=== PATIENT | male | born 1945 | race Caucasian/White ===

== ENCOUNTER → 2018-08-12 | Outpatient (CLI) | payer OTHER ==
[~2018-08-12] MED LIST: AMLO10; Indapamide1.25 MG; K-Dur20 MEQ PO; METF500C; PIOG30 PO; TOPROL XL200 MG PO; Zestril40 MG PO
[2018-08-13 08:37] LABS: Stool Occult Bld Immuno 1 Positive (NEGATIVE)
== END | disposition home or self-care (01) ==
LOC: LAB SHORT 09:26 → LAB 09:26
PROVIDERS: Internal Medicine
DX: D50.8 Other iron deficiency anemias (principal)
CPT/HCPCS: 82274

== ENCOUNTER 2019-05-12 11:02 | Day surgery (SDC) | payer OTHER ==
[~2019-05-12] VITALS: Ht 162.6 cm; Wt 100.0 kg
[~2019-05-12 11:02] MED LIST changes: -AMLO10; +AMLO10 PO; +CHLO25B PO; +CHOL10002 PO; +IRON150C PO; +LOVA40 PO; -METF500C; +METF500C PO; +NAPR220
--- NOTE | 2019-05-12 12:47 | NUR ---
Ambulatory in Day Surgery History, Chart, Medications and Allergies reviewed before start of procedure. Lungs clear T/O to Auscultation. Patient confirms NPO status and agrees with scheduled surgery. Pre-Op teaching done. Pt verbalizes understanding.
--- NOTE | 2019-05-12 19:15 | NUR ---
POST OP: PT ARRIVED TO ROOM POST OP. BLOOD PRESSURE ELEVATED AT TIMES, SEE VITAL RECORD. WILL GIVE PT SCHEDULED BP MEDS. PT LYNETTE JELLO AND WATER. IV DRIP FROM PACU. DRESSING CDI. PAS, TEDS AND POLAR PACK IN PLACE. PT HAS NUMBNESS AND TINGLING TO BLE R/T SPINAL ANESTHESIA. DENIES PAIN. INSTRUCTED PASSENGER LOCOMOTIVE ENGINEER LIGHT USE. WILL REPORT TO NOC RN.
[2019-05-13 04:39] LABS: BASOPHILS ABSOLUTE AUTO 0.01 K/mm3 (0.00-0.23); BASOPHILS PERCENT AUTO 0 % (0-2); EOSINOPHILS PERCENT AUTO 0 % (0-6); Hematocrit 35.4 % (37.0-53.0); Hemoglobin 11.6 g/dL (13.5-17.5); IMMATURE GRAN ABSOLUTE AUTO 0.04 K/mm3 (0.00-0.10); IMMATURE GRAN PERCENT AUTO 0 % (0-1); LYMPHOCYTES ABSOLUTE AUTO 1.15 K/mm3 (0.84-5.20); LYMPHOCYTES PERCENT AUTO 11 % (21-46); MONOCYTES ABSOLUTE AUTO 0.31 K/mm3 (0.16-1.47); MONOCYTES PERCENT AUTO 3 % (4-13); Mean Corpuscular HGB 29.7 pg (26.0-34.0); Mean Corpuscular HGB Conc 32.8 g/dL (31.5-36.5); Mean Corpuscular Volume 91 fL (80-100); Mean Platelet Volume 9.5 fL (9.1-12.4); NEUTROPHILS ABSOLUTE AUTO 9.47 K/mm3 (1.96-9.15); NEUTROPHILS PERCENT AUTO 86 % (41-73); Platelet Count 238 K/mm3 (150-400); RDW Standard Deviation 46.7 fL (35.1-46.3); White Blood Cell Count 10.98 K/mm3 (4.00-11.30)
[2019-05-13 04:56] LABS: Bun/Creatinine Ratio 15.8 (12.0-20.0); Calcium, Blood 8.2 mg/dL (8.5-10.1); Creatinine, Blood 1.46 mg/dL (0.60-1.20); Magnesium, Blood 1.6 mg/dL (1.6-2.4); Potassium, Blood 4.2 mmol/L (3.5-5.5)
--- NOTE | 2019-05-13 05:48 | NUR ---
CHAIR OR WALKING MORE THAN 20 FEET.RN NOTIFIED
--- NOTE | 2019-05-13 05:56 | NUR ---
SHIFT SUMMARY PT RESTED INFREQUENTLY T/O NIGHT. AAOX4. PAIN CONTRLLED WITH SCHEDULED TYLENOL / TORADOL + 10MG PO ROXICODONE Q4-5P. NAUSEA CONTROLLED WITH ZOFRAN + REGLAN WITH SMALL AMOUNT EMESIS THIS AM. PT SBA UP TO RESTROOM WITH FWW. PT SITTING UP AT BEDSIDE THIS AM, AWAITING BREAKFAST. CALL LIGHT IN REACH + PT USES FOR ASSISTANCE.
--- NOTE | 2019-05-13 10:35 | NUR ---
05/13/19 1035 Brooke Scott VERIFICATIONS: EDIT CHART.
[2019-05-13] MEDS ORDERED: OXYC5 PO (17:50)
[2019-05-13] MEDS ORDERED: ASPI325 PO (17:51)
--- NOTE | 2019-05-13 18:40 | NUR ---
DISCHARGE PT UNDERSTANDS DISCHARGE INSTRUCTIONS. SCRIPT AND DRSGS GIVEN. CLEARED THEPAY. VOIDING, TOLERATING DIET, PAIN WELL CONTROLLED. ESCORTED OUT VIA W/C.
== END 2019-05-13 18:55 | disposition home or self-care (01) ==
LOC: ORSCMMR 11:02 → ORD 13:00 → ORSCMMR 13:00 → SURS 18:49 → ORSCMMR 05-13 18:55
PROVIDERS: Orthopaedic Surgery
PROC: 0SRD0J9 Replacement of Left Knee Joint with Synthetic Substitute, Cemented, Open Approach (ICD-10-PCS; principal; 2019-05-12 13:00)
DX: M17.12 Unilateral primary osteoarthritis, left knee (principal); I10 Essential (primary) hypertension; E11.9 Type 2 diabetes mellitus without complications; E78.00 Pure hypercholesterolemia, unspecified; Z87.891 Personal history of nicotine dependence; E66.01 Morbid (severe) obesity due to excess calories; Z68.36 Body mass index [BMI] 36.0-36.9, adult; Z79.899 Other long term (current) drug therapy
CPT/HCPCS: 36415; 73560-LT; 80048; 82947; 83735; 85025; 88300; 97110; 97116; 97162; 97530; C1713; C1776; J0171; J0690; J0735; J1100; J1170; J1885; J2250; J2405; J2550; J2704; J2765; J2795; J3010; J7120

== ENCOUNTER → 2019-10-07 | Outpatient (CLI) | payer OTHER ==
[~2019-10-07] MED LIST changes: +ASPI325 PO; +OXYC5 PO
== END | disposition home or self-care (01) ==
LOC: PLD 11:31 → LAB SHORT 11:31
DX: D17.24 Benign lipomatous neoplasm of skin and subcutaneous tissue of left leg (principal)
CPT/HCPCS: 88305

== ENCOUNTER 2020-12-27 17:07 | Emergency (ER) | payer OTHER ==
[~2020-12-27] VITALS: Ht 162.6 cm; Wt 79.4 kg
[2020-12-27] MEDS ORDERED: LISI20 PO (17:17)
[2020-12-27] MEDS ORDERED: K-Dur10 MEQ PO (17:17)
[2020-12-27] MEDS ORDERED: AMLODIPINE BESYL5 MG PO (17:17)
[2020-12-27] MEDS ORDERED: LOVASTATIN40 MG PO (17:17)
[2020-12-27] MEDS ORDERED: Toprol Xl200 MG PO (17:18)
[2020-12-27] MEDS ORDERED: METFORMIN HCL500 M3 PO (17:18)
[2020-12-27] MEDS ORDERED: PIOGLITAZONE HC15 MG PO (17:18)
[2020-12-27] MEDS ORDERED: THERA-D2000 UNIT PO (17:18)
[2020-12-27] MEDS ORDERED: FERSU300 PO (17:19)
[2020-12-27] MEDS ORDERED: CHLO25B PO (17:19)
[2020-12-27 18:35] LABS: BASOPHILS ABSOLUTE AUTO 0.01 K/mm3 (0.00-0.23); BASOPHILS PERCENT AUTO 0 % (0-2); EOSINOPHILS ABSOLUTE AUTO 0.01 K/mm3 (0.00-0.68); EOSINOPHILS PERCENT AUTO 0 % (0-6); Hemoglobin 11.8 g/dL (13.5-17.5); IMMATURE GRAN ABSOLUTE AUTO 0.02 K/mm3 (0.00-0.10); IMMATURE GRAN PERCENT AUTO 0 % (0-1); LYMPHOCYTES ABSOLUTE AUTO 2.34 K/mm3 (0.84-5.20); LYMPHOCYTES PERCENT AUTO 30 % (21-46); MONOCYTES ABSOLUTE AUTO 0.53 K/mm3 (0.16-1.47); MONOCYTES PERCENT AUTO 7 % (4-13); Mean Corpuscular HGB 34.7 pg (26.0-34.0); Mean Corpuscular HGB Conc 32.8 g/dL (31.5-36.5); Mean Corpuscular Volume 106 fL (80-100); Mean Platelet Volume 10.3 fL (9.1-12.4); NEUTROPHILS PERCENT AUTO 62 % (41-73); Platelet Count 212 K/mm3 (150-400); RDW Coefficient Variation 18.7 % (11.7-14.2); RDW Standard Deviation 71.8 fL (35.1-46.3); White Blood Cell Count 7.71 K/mm3 (4.00-11.30)
[2020-12-27 18:46] LABS: Anion Gap 3 mmol/L (6-16); Blood Urea Nitrogen 37 mg/dL (8-24); Bun/Creatinine Ratio 47.6 (12.0-20.0); CO2, Blood 34 mmol/L (21-32); Calcium, Blood 9.1 mg/dL (8.5-10.1); Chloride, Blood 102 mmol/L (98-108); Creatinine, Blood 0.78 mg/dL (0.60-1.20); Glomerular Filtration Rate >60 (60-); Glucose, Blood 99 mg/dL (70-99); Potassium, Blood 3.4 mmol/L (3.5-5.5); Sodium, Blood 139 mmol/L (136-145)
[2020-12-27] MEDS ORDERED: ONDA4ODT MM (21:29)
== END 2020-12-27 22:13 | disposition home or self-care (01) ==
LOC: ER 17:07
PROVIDERS: Student in an Organized Health Care Education/Training Program
DX: R11.2 Nausea with vomiting, unspecified (principal); R19.7 Diarrhea, unspecified; I10 Essential (primary) hypertension; E11.9 Type 2 diabetes mellitus without complications; Z79.899 Other long term (current) drug therapy; Z87.891 Personal history of nicotine dependence
CPT/HCPCS: 80048; 85025; 93005; 93010; 96361; 96374; 99284-25; J2405; J7030

== ENCOUNTER 2021-01-02 22:16 | Inpatient (IN) | payer OTHER ==
[~2021-01-02] VITALS: Ht 162.6 cm; Wt 82.8 kg
[~2021-01-02 22:16] MED LIST changes: +AMLODIPINE BESYL5 MG PO; +FERSU300 PO; +K-Dur10 MEQ PO; +LISI20 PO; +LOVASTATIN40 MG PO; +METFORMIN HCL500 M3 PO; +ONDA4ODT MM; +PIOGLITAZONE HC15 MG PO; +THERA-D2000 UNIT PO; +Toprol Xl200 MG PO
[2021-01-03 00:22] LABS: BASOPHILS ABSOLUTE AUTO 0.02 K/mm3 (0.00-0.23); BASOPHILS PERCENT AUTO 0 % (0-2); EOSINOPHILS PERCENT AUTO 0 % (0-6); Hematocrit 33.3 % (37.0-53.0); Hemoglobin 11.1 g/dL (13.5-17.5); IMMATURE GRAN ABSOLUTE AUTO 0.08 K/mm3 (0.00-0.10); IMMATURE GRAN PERCENT AUTO 1 % (0-1); LYMPHOCYTES ABSOLUTE AUTO 1.56 K/mm3 (0.84-5.20); LYMPHOCYTES PERCENT AUTO 21 % (21-46); MONOCYTES PERCENT AUTO 9 % (4-13); Mean Corpuscular HGB Conc 33.3 g/dL (31.5-36.5); Mean Corpuscular Volume 105 fL (80-100); Mean Platelet Volume 10.3 fL (9.1-12.4); NEUTROPHILS ABSOLUTE AUTO 5.17 K/mm3 (1.96-9.15); NEUTROPHILS PERCENT AUTO 69 % (41-73); Platelet Count 208 K/mm3 (150-400); RDW Coefficient Variation 19.3 % (11.7-14.2); RDW Standard Deviation 72.3 fL (35.1-46.3); Red Blood Cell Count 3.17 M/mm3 (4.30-5.90); White Blood Cell Count 7.53 K/mm3 (4.00-11.30)
[2021-01-03 00:39] LABS: Albumin, Blood 3.1 g/dL (3.4-5.0); Albumin/Globulin Ratio 0.9 (0.8-1.8); Bilirubin, Total 1.5 mg/dL (0.1-1.0); Bun/Creatinine Ratio 16.9 (12.0-20.0); Calcium, Blood 9.1 mg/dL (8.5-10.1); Creatinine, Blood 1.77 mg/dL (0.60-1.20); Globulin, Blood 3.6 g/dL (2.2-4.0); Magnesium, Blood 1.9 mg/dL (1.6-2.4); Potassium, Blood 3.2 mmol/L (3.5-5.5); Total Protein, Blood 6.7 g/dL (6.4-8.2)
[2021-01-03 03:18] LABS: Albumin, Blood 3.2 g/dL (3.4-5.0); Anion Gap 17 mmol/L (6-16); Blood Urea Nitrogen 31 mg/dL (8-24); Bun/Creatinine Ratio 17.4 (12.0-20.0); CO2, Blood 21 mmol/L (21-32); Calcium, Blood 9.1 mg/dL (8.5-10.1); Chloride, Blood 113 mmol/L (98-108); Creatinine, Blood 1.78 mg/dL (0.60-1.20); Glomerular Filtration Rate 40 (60-); Glucose, Blood 130 mg/dL (70-99); Phosphorus, Blood 1.9 mg/dL (2.5-4.9); Potassium, Blood 3.3 mmol/L (3.5-5.5); Sodium, Blood 151 mmol/L (136-145)
[2021-01-03 03:26] LABS: Influenza A, PCR NEGATIVE (NEGATIVE); Influenza B, PCR NEGATIVE (NEGATIVE); Resp Syncytial Virus, PCR NEGATIVE (NEGATIVE); SARS-Cov-2 (COVID-19) PCR, MMC NEGATIVE (NEGATIVE)
--- NOTE | 2021-01-03 09:00 | NUR ---
PT ARRIVED TO ROOM 230 FORM ER DEPT PT STATED HE HAS BEEN SICK FOR THE PAST 2 WEEKS UNABL TO TAKE HIS HOME MEDS AND EAT OR DRINK HAS BEEN HAVING N/V AND DIARRHEA STATED LAST TIME HE VOIDED WAS YESTERDAY PT STATED HE JUST HAD SOME NAUSEA MEDS NO ABD PAIN AT THIS TIME WILL NOTIFY DR PERSAUD FOR GI CONSULT PT STATED FOR HIS HX HE HAS HAD A GI BLEED 2 YEARS AGO WHILE TAKING MOTRIN FOR A KNEE REPLACEMENT
--- NOTE | 2021-01-03 09:54 | NUR ---
DR PERSAUD OFFICE CALLED MESSAGE LEFT WITH THE OFFICE
--- NOTE | 2021-01-03 10:05 | NUR ---
reglan ivp given pt still having dry heaves after coming up from the er dept pt had a dose of zofran at 0900 prior to coming up scant amt in emesis bag
--- NOTE | 2021-01-03 12:30 | NUR ---
pt unable to taryn po kcl called dr hanson switched med to iv
--- NOTE | 2021-01-03 18:00 | NUR ---
pt had more dry heaves reglan given per pt req offered earlier pt declined
--- NOTE | 2021-01-04 04:27 | NUR ---
SHIFT SUMMARY: PT A&O X4. PT DRY HEAVING AT TIMES AND SPITTING UP A SMALL AMOUNT OF MUCUS. NAUSEA TREATED WITH ZOFRAN AND REGLAN PER EMAR. TELE PLACED FOR NEW ORDER OF IV LABETALOL Q4 PRN. SR WITH PVC'S AT 95 PER TEAR DOWN MAN. PT DENIES CP AND SOB. PT UNABLE TO SWALLOW PILLS. IV POTASSIUM COMPLETE. 1/2 NS INFUSING PER ORDERS. PT SBA TO BATHROOM. VOIDING SMALL AMOUNT EACH TIME (100-200CC). TOTAL OF 400CC OUT. URINE IS DARK/POOJA. PT DENIES URINARY SYMPTOMS. RESTING MOST OF SHIFT. PT HAS BEEN NPO SINCE MIDNIGHT.
[2021-01-04 06:33] LABS: Hematocrit 29.9 % (37.0-53.0); Hemoglobin 9.9 g/dL (13.5-17.5); Mean Corpuscular HGB 35.6 pg (26.0-34.0); Mean Corpuscular HGB Conc 33.1 g/dL (31.5-36.5); Mean Corpuscular Volume 108 fL (80-100); Mean Platelet Volume 10.1 fL (9.1-12.4); Platelet Count 141 K/mm3 (150-400); RDW Coefficient Variation 19.6 % (11.7-14.2); RDW Standard Deviation 74.5 fL (35.1-46.3); Red Blood Cell Count 2.78 M/mm3 (4.30-5.90); White Blood Cell Count 5.29 K/mm3 (4.00-11.30)
[2021-01-04 06:45] LABS: Bun/Creatinine Ratio 14.7 (12.0-20.0); Calcium, Blood 8.3 mg/dL (8.5-10.1); Creatinine, Blood 1.7 mg/dL (0.60-1.20); Potassium, Blood 3.1 mmol/L (3.5-5.5)
--- NOTE | 2021-01-04 13:51 | NUR ---
Ambulatory in Day Surgery History, Chart, Medications and Allergies reviewed before start of procedure.Lungs clear T/O to Auscultation. Patient confirms NPO status and agrees with scheduled surgery.
--- NOTE | 2021-01-04 14:30 | NUR ---
01/04/21 1430 AJITH LU History, Chart, Medications and Allergies reviewed before start of procedure. 3-LEAD EKG REVIEWED WITH PHYSICIAN PRIOR TO START OF PROCEDURE. O2 VIA N/C INTACT THROUGHOUT SEDATION/PROCEDURE. MONITOR INTACT WITH CONTINUOUS PULSE OXIMETRY AND INTERMITTENT BP. ANESTHESIA CONSULT WITH DR. BERMUDEZ AND DR. PERSAUD WITH DECISION TO PROCEED WITH NURSE SEDATION.
--- NOTE | 2021-01-04 18:24 | NUR ---
SHIFT SUMMARY PT A/O X4; PLEASANT AND COOPERATIVE WITH CARE. HE C/O OF NAUSEA AND DRY HEAVING. HAD AN EGD TODAY AND UNDERWENT AN ESOPHAGUS DILATION AND GI BIOPSY. ADVANCE DIET TOLERATED AND IS CURRENTLY TOLERATING A CLEAR LIQUID DIET. GETS UP WITH A STAND BY ASSIST TO THE BATHROOM. NO ACUTE CHANGES THIS SHIFT; VSS; WILL REPORT TO KEN GRACIA.
--- NOTE | 2021-01-04 18:40 | NUR ---
IV DC'D WHEN PT WHEN IN FOR EGD. IV NOW IN R WRIST.
--- NOTE | 2021-01-05 04:35 | NUR ---
SHIFT SUMMARY S/P INTRACTABLE N/V, A/O X4, VSS, TOLERATING PO, VOIDING WELL, SBA W/ TRANSFERRING/AMBULATING, REPORTS FEELING "A LITTLE BIT OF NAUSEA", BUT DENIES NEED FOR MEDICATIONS. CALL LIGHT IN REACH, WILL CONTINUE TO MONITOR AND REPORT TO ONCOMING DAY RN.
[2021-01-05 04:49] LABS: BASOPHILS ABSOLUTE AUTO 0.01 K/mm3 (0.00-0.23); BASOPHILS PERCENT AUTO 0 % (0-2); EOSINOPHILS ABSOLUTE AUTO 0.05 K/mm3 (0.00-0.68); EOSINOPHILS PERCENT AUTO 1 % (0-6); Hematocrit 29.5 % (37.0-53.0); Hemoglobin 9.7 g/dL (13.5-17.5); IMMATURE GRAN ABSOLUTE AUTO 0.05 K/mm3 (0.00-0.10); IMMATURE GRAN PERCENT AUTO 1 % (0-1); LYMPHOCYTES ABSOLUTE AUTO 1.37 K/mm3 (0.84-5.20); LYMPHOCYTES PERCENT AUTO 27 % (21-46); MONOCYTES ABSOLUTE AUTO 0.34 K/mm3 (0.16-1.47); MONOCYTES PERCENT AUTO 7 % (4-13); Mean Corpuscular HGB Conc 32.9 g/dL (31.5-36.5); Mean Corpuscular Volume 107 fL (80-100); Mean Platelet Volume 10.4 fL (9.1-12.4); NEUTROPHILS PERCENT AUTO 64 % (41-73); NRBC ABSOLUTE 0.02 K/mm3 (0.00-0.02); NRBC Auto 0.4 /100 WBC (0.0-0.2); Platelet Count 123 K/mm3 (150-400); RDW Standard Deviation 72.9 fL (35.1-46.3); Red Blood Cell Count 2.77 M/mm3 (4.30-5.90); White Blood Cell Count 5.12 K/mm3 (4.00-11.30)
[2021-01-05 05:15] LABS: Bun/Creatinine Ratio 13.2 (12.0-20.0); Calcium, Blood 8.1 mg/dL (8.5-10.1); Creatinine, Blood 1.59 mg/dL (0.60-1.20)
[2021-01-05 16:12] LABS: Bun/Creatinine Ratio 12.2 (12.0-20.0); Creatinine, Blood 1.48 mg/dL (0.60-1.20); Potassium, Blood 3.4 mmol/L (3.5-5.5)
--- NOTE | 2021-01-05 18:31 | NUR ---
SUMMARY: NO ACUTE CHANGE TODAY. VSS, A/O, TELE STABLE. PT CONTINUES TO BE NAUSEATED, MEDICATED PER EMAR. SMALL AMT EMESIS WHEN PT ATTEMPTED TO TAKE PILLS. PT REPORTS A SMALL SIP OF WATER MAKES HIM NAUSATED. PT IS PASSING GAS, DENIES ANY PAIN. FLUIDS INFUSING.PLAN IS FOR CT TOMORROW IF KIDNEY FUCTION IMPROVED. WILL CTM AND REPORT TO KEN GRACIA.
--- NOTE | 2021-01-06 03:13 | NUR ---
SHIFT SUMMARY S/P INTRACT N/V, A/O X4, VSS, TOLERATING MINIMAL PO INTAKE, IV FLUIDS INFUSING PER ORDER, PT REPORTS INTEMITTENT NAUSEA BUT NONE AT TIME OF ASSESSMENT, DENIES NEED FOR NAUSEA MEDS, REGLAN GIVEN SCHEDULED PER ORDER. DENIES PAIN T/O SHIFT. CALL LIGHT IN REACH, WILL CONTINUE TO MONITOR AND REPORT TO ONCOMING DAY RN.
[2021-01-06 07:16] LABS: Hematocrit 29.6 % (37.0-53.0); Mean Corpuscular HGB 35.7 pg (26.0-34.0); Mean Corpuscular HGB Conc 33.8 g/dL (31.5-36.5); Mean Corpuscular Volume 106 fL (80-100); Mean Platelet Volume 10.5 fL (9.1-12.4); Platelet Count 121 K/mm3 (150-400); RDW Coefficient Variation 18.8 % (11.7-14.2); RDW Standard Deviation 71.4 fL (35.1-46.3); White Blood Cell Count 5.95 K/mm3 (4.00-11.30)
[2021-01-06 07:44] LABS: Calcium, Blood 7.5 mg/dL (8.5-10.1); Creatinine, Blood 1.36 mg/dL (0.60-1.20)
--- NOTE | 2021-01-06 14:46 | NUR ---
CALL FROM SOLAR TECH, GAVINO AT 1010. PT HAD 6 BEAT RUN OF VTACH. UPON ASSESSMENT PT IS IN NO VISABLE DISTRESS, SLEEPING, VSS. DR. MARIE MADE AWARE AT 1030. SEE RYTHUM STRIP IN CHART.
--- NOTE | 2021-01-06 15:01 | NUR ---
PT TO CT AT ABOUT 1300
--- NOTE | 2021-01-06 17:21 | NUR ---
NOTED HTN THIS MORNING. PT DENIES PAIN/ANXIETY/HEADACHE. MEDICATED PER EMAR. MOST RECENT CBG 71, PT HAS BEEN UNABLE TO KEEP ANY LIQUIDS DOWN AND HAS HAD INTERMITTANT NAUSEA. DR. MARIE MADE AWARE OF PT BP WITH MORNING ROUNDS AND CBG AT 1230. NO NEW ORDERS AT THIS TIME.
--- NOTE | 2021-01-06 17:27 | NUR ---
AT 1652 CAKE WASHER GAVINO CALLED. PT HAD 8 BEAT RUN OF VTACH. UPON ASSESSMENT PT IS NO DISTRESS, IS SLEEPING AND VSS. DR. MARIE NOTIFIED AT 0898
--- NOTE | 2021-01-06 17:31 | NUR ---
SUMMARY: SEE PREVIOUS NOTES. TELE AND VS CURRENTLY STABLE. PT HAS SLEPT ON AND OFF TODAY. UP TO VOID FREQUENTLY. URINE IS METAL MODEL MAKER IN COLOR. PT HAS DENIED ANY PAIN, ONLY INTERMITTANT NAUSEA. MEDICATED PER EMAR. PT ABLE TO HAVE CT. NO ACUTE CONCERNS AT THIS TIME. WILL CTM
[2021-01-07 02:41] LABS: U Amphetamine Screen Not Detected; U Barbituate Screen Not Detected; U Benzodiazapine Screen Not Detected; U Buprenorphine Screen Not Detected; U Cannabinoids Screen Not Detected; U Cocaine Screen Not Detected; U Methadone Screen Not Detected; U Methamphetamine Screen Not Detected; U Opiates Screen Not Detected; U Oxycodone Screen Not Detected; U Phencyclidine Screen Not Detected; U Propoxyphene Screen Not Detected
--- NOTE | 2021-01-07 06:40 | NUR ---
SHIFT SUMMARY: ROULA IS A&OX4. VSS, NO ACUTE EVENTS OVERNIGHT. HE CONTINUES TO HAVE EPISODES OF DRY HEAVING EVEN WITH SMALL SIPS OF CLEARS. IV TO LEFT HAND PATENT. HE IS A ONE PERSON STANDBY ASSIST TO THE BATHROOM. HE IS URINATING WITHOUT DIFFICULTY. HE REPORTS BEING CONCERNED ABOUT BEING DISCHARGED WITHOUT IMPROVEMENT IN HIS CONDITION. HE STATES THAT HE HAS BEEN THROWING UP EVERYTHING HE ATTEMPTS TO EAT FOR APPROX 3 WEEKS. HE USES HIS CALL LIGHT APPROPRIATELY. HIS BLOOD SUGARS ARE MAINTAINING IN THE 70s. HE IS LYING IN BED WITH HIS CALL LIGHT IN REACH. WILL REPORT TO DAY SHIFT RN.
--- NOTE | 2021-01-07 07:29 | NUR ---
ASSUMED CARE: PT RESTING IN BED, TALKS TO STAFF. OCCASIONAL DRY HEAVING. NSR ON TELE BUT TELE REPORTS PT HAS HAD RUNS OF VTACH WELL. WILL DISCUSS WITH MD DUE TO DECREASED POTASSIUM IN AM LABS. NO ACUTE NEEDS AT THIS TIME.
--- NOTE | 2021-01-07 08:45 | NUR ---
DISCUSSED PT'S POTASSIUM LEVEL AND RUNS OF VTACH ON TELE WITH DR LAWRENCE. TO REVIEW MAGNESIUM LEVEL AND ORDERED POTASSIUM REPLACEMENT
[2021-01-07 12:06] LABS: Anion Gap 11 mmol/L (6-16); Blood Urea Nitrogen 9 mg/dL (8-24); Bun/Creatinine Ratio 7.6 (12.0-20.0); CO2, Blood 24 mmol/L (21-32); Chloride, Blood 105 mmol/L (98-108); Creatinine, Blood 1.18 mg/dL (0.60-1.20); Glomerular Filtration Rate >60 (60-); Glucose, Blood 76 mg/dL (70-99); Magnesium, Blood 1.4 mg/dL (1.6-2.4); Potassium, Blood 3.2 mmol/L (3.5-5.5); Sodium, Blood 140 mmol/L (136-145)
--- NOTE | 2021-01-07 12:17 | NUR ---
CALL TO DR LAWRENCE REGARDING PT'S MAGNESIUM RESULT AND MADE AWARE THAT POTASSIUM IS NOT ACCURATE DUE LAB DRAWING BEFORE KCL WAS COMPLETED. DR ALSO MADE AWARE THAT PT HAS NOT HAD ANY VOMITING, JUST CONTINUALLY STATES HE IS NAUSEATED. ONLY TAKING BITES OF JELLO AND SIPS OF APPLE JUICE. NO FURTHER NEEDS AT THIS TIME.
--- NOTE | 2021-01-07 18:27 | NUR ---
SHIFT SUMMARY: PT HAS NOT HAD ANY VOMITING THIS SHIFT, JUST NAUSEA AND HAS BEEN SIPPING ON APPLE JUICE AND TAKING BITES OF JELLO ALL SHIFT. DECLINES ALL ORAL MEDS DUE TO FEELING LIKE HE CAN'T KEEP THEM DOWN. POTASSIUM AND MAGNESIUM REPLACEMENTS HAVE BEEN GIVEN FOR 2 RUNS OF VTACH THIS SHIFT. TELE STATES NO EPISODES SINCE 1400. NO FURTHER NEEDS OR CONCERNS AT THIS TIME.
--- NOTE | 2021-01-08 04:11 | NUR ---
SHIFT SUMMARY PT A0X4. PT HAD DRY HEAVING INTERMITTENTLY T/O THE SHIFT. CBG AT THE BEGINNING OF SHIFT WAS 68, RECHECKED AND IT HAS IMPROVED TO 70. HE HAS BEEN TRENDING ON 70'S YESTERDAY. PT WAS ASYMPTOMATIC FOR HYPOGLYCEMIA. HE HAS TRIED SIPPIN ON JUICE AND HAD SOME BITES OF JELLO. SLEPT GOOD T/O THE SHIFT. PT DENIES VOMITING. SBA, PT DENIES DIZZINESS, CHEST PAIN AND SOB. VSS. CALL LIGHT WITHIN REACH.
--- NOTE | 2021-01-08 04:47 | NUR ---
PT STILL REFUSED TO TAKE PO MEDS THIS MORNING.
[2021-01-08 05:14] LABS: Anion Gap 12 mmol/L (6-16); Blood Urea Nitrogen 7 mg/dL (8-24); Bun/Creatinine Ratio 6.3 (12.0-20.0); CO2, Blood 22 mmol/L (21-32); Calcium, Blood 6.9 mg/dL (8.5-10.1); Chloride, Blood 103 mmol/L (98-108); Creatinine, Blood 1.11 mg/dL (0.60-1.20); Glomerular Filtration Rate >60 (60-); Glucose, Blood 63 mg/dL (70-99); Potassium, Blood 3.1 mmol/L (3.5-5.5); Sodium, Blood 137 mmol/L (136-145); Thyroid Stimulating Hormone 0.628 uIU/mL (0.360-4.800)
--- NOTE | 2021-01-08 07:00 | NUR ---
RECVD REPORT FROM PREVIOUS SHIFT BASIL OLMEDO. PT LYING IN BED AWAKE, A/O X 4, DENIES NAUSEA AT THIS TIME. BED IN LOWEST POSITION, BED RAILS UP X 2, CALL LIGHT WITHIN REACH. THIS AM PT'S CBG 66, DENIES LIGHTHEADEDNESS/DIAPHORESIS; PROVIDED PT WITH PO INTAKE. REFUSES JUICE, DOES AGREE TO TRY A POPSICLE. PT INDEPENDENT TO BATHROOM
--- NOTE | 2021-01-08 12:20 | NUR ---
pt has been able to keep down PO cardiac meds and first dose Marinol. pt has been sucking on a hard candy to assist CBG, has not agreed to other PO intake yet. Pt has had no vomiting, states to milk nausea
--- NOTE | 2021-01-08 16:57 | NUR ---
SHIFT SUMMARY PATIENT TRANFERED FROM SURGICAL FLOOR THIS AFTERNOON. PATIENT ALERT AND ORIENTED THIS SHIFT. PATIENT INDEPENDENT IN THE ROOM. PATIENT STATES ONLY MILD NAUSEA THIS AFTERNOON. PATIENT DENIES PAIN THIS SHIFT. PATIENT SITTING UP IN BED WATCHING TELEVISION THROUGHOUT THIS AFTERNOON.
--- NOTE | 2021-01-09 03:40 | NUR ---
SHIFT SUMMARY ASSUMED CARE OF PT AT 1900. PT IS A/OX4. HEART SONUDS ADIR, TELE SHOWS SINUS @ 64, PT HAD ON 7 BEAT RUN OF VTACH, PT HAS HAD THESE T/O HIS STAY, PT ASYMPTOMATIC. LUNG SOUNDS CLEAR. PT INDEPENDENT TO BATHROOM. PT DENIES NEASEA. NO ACUTE EVENTS DURING THE NIGHT. PT SLEPT MOST OF THE NIGHT. CALL LIGHT IN REACH, BED IN LOWEST POSITION.
[2021-01-09 06:39] LABS: Anion Gap 12 mmol/L (6-16); Blood Urea Nitrogen 6 mg/dL (8-24); Bun/Creatinine Ratio 5.1 (12.0-20.0); CO2, Blood 22 mmol/L (21-32); Calcium, Blood 6.9 mg/dL (8.5-10.1); Chloride, Blood 101 mmol/L (98-108); Creatinine, Blood 1.17 mg/dL (0.60-1.20); Glomerular Filtration Rate >60 (60-); Glucose, Blood 63 mg/dL (70-99); Potassium, Blood 3.3 mmol/L (3.5-5.5); Sodium, Blood 135 mmol/L (136-145)
[2021-01-09] MEDS ORDERED: METO10 PO (12:21)
[2021-01-09] MEDS ORDERED: PANT40 PO (12:21)
[2021-01-09] MEDS ORDERED: DRON2.5 PO (12:21)
--- NOTE | 2021-01-09 13:50 | NUR ---
REVIEW D'C. IV D'C WITH PRESSURE TO AREA. NO SWELLING OR BRUISING NOTED. AWARE OF 2 MEDS AT [facility] AND HAS RX HARD COPY FOR THIRD. REVIEW WHY ON MEDS. AWARE HE NEEDS TO MAKE APPOINTMENT WITH PCP OFFICE IS CLOSED TODAY. AWARE CAN RETURN TO E.R IF NEEDED. REVIEW CLEAR LIQUID DIET AND GRADUALLY ADVANCE TO BLAND DIET. AWARE PCP WILL/MAY BE ORDERING OTHER TESTS IF CONTINUING TO HAVE N/V. STS WILL GO DOWN STAIRS AND NEEDS TO TALK TO ADMISSION THEN WILL CALL FOR RIDE, PROBABLY TAXI. ASKED IF HE WANTED TO CALL FOR TAXI UP HERE, STS NO. IN W/C WITH LUGGER DOWN TO FIRST FLOOR.
== END 2021-01-09 13:55 | disposition home or self-care (01) | DRG 683 ==
LOC: ER 22:16 → ERHOLD 22:17 → SURS 01-03 08:47 → MEDS 01-08 14:10 → ENPENDDIS 01-09 10:32 → MEDS 01-09 13:55
PROVIDERS: Emergency Medicine; Family Medicine; Hospitalist; Internal Medicine Gastroenterology; ADMIT Family Medicine
PROC: 0D728ZZ Dilation of Middle Esophagus, Via Natural or Artificial Opening Endoscopic (ICD-10-PCS; principal; 2021-01-04 14:00)
PROC: 0DB78ZX Excision of Stomach, Pylorus, Via Natural or Artificial Opening Endoscopic, Diagnostic (ICD-10-PCS; 2021-01-04 14:00)
DX: N17.9 Acute kidney failure, unspecified (principal); E87.0 Hyperosmolality and hypernatremia; Z66 Do not resuscitate; I10 Essential (primary) hypertension; E11.649 Type 2 diabetes mellitus with hypoglycemia without coma; E78.5 Hyperlipidemia, unspecified; R11.2 Nausea with vomiting, unspecified; K44.9 Diaphragmatic hernia without obstruction or gangrene; E86.0 Dehydration
CPT/HCPCS: 0241U; 36415; 71260; 74177; 80048; 80053; 80069; 82947; 83690; 83735; 84443; 85025; 85027; 88305; 88342; 96361; 96374; 96375; 99285-25; A9270; G0378; J2405; J2704; J2765; J3475; J3480; J7120; Q0167; Q9967

== ENCOUNTER 2021-01-17 17:01 | Observation (INO) | payer OTHER ==
[~2021-01-17] VITALS: Ht 162.6 cm; Wt 77.1 kg
[~2021-01-17 17:01] MED LIST changes: +DRON2.5 PO; +METO10 PO; +PANT40 PO
[2021-01-17 18:22] LABS: BASOPHILS ABSOLUTE AUTO 0.01 K/mm3 (0.00-0.23); BASOPHILS PERCENT AUTO 0 % (0-2); EOSINOPHILS PERCENT AUTO 0 % (0-6); Hematocrit 34.2 % (37.0-53.0); Hemoglobin 11.9 g/dL (13.5-17.5); IMMATURE GRAN ABSOLUTE AUTO 0.03 K/mm3 (0.00-0.10); IMMATURE GRAN PERCENT AUTO 1 % (0-1); LYMPHOCYTES ABSOLUTE AUTO 0.63 K/mm3 (0.84-5.20); LYMPHOCYTES PERCENT AUTO 12 % (21-46); MONOCYTES ABSOLUTE AUTO 0.34 K/mm3 (0.16-1.47); MONOCYTES PERCENT AUTO 6 % (4-13); Mean Corpuscular HGB 36.3 pg (26.0-34.0); Mean Corpuscular HGB Conc 34.8 g/dL (31.5-36.5); Mean Corpuscular Volume 104 fL (80-100); Mean Platelet Volume 9.6 fL (9.1-12.4); NEUTROPHILS ABSOLUTE AUTO 4.45 K/mm3 (1.96-9.15); NEUTROPHILS PERCENT AUTO 82 % (41-73); Platelet Count 222 K/mm3 (150-400); RDW Coefficient Variation 19.6 % (11.7-14.2); RDW Standard Deviation 75.6 fL (35.1-46.3); Red Blood Cell Count 3.28 M/mm3 (4.30-5.90); White Blood Cell Count 5.46 K/mm3 (4.00-11.30)
[2021-01-17 18:57] LABS: Alanine Aminotransfer (ALT/SGP 21 U/L (12-78); Albumin, Blood 3.1 g/dL (3.4-5.0); Alk Phos 54 U/L (50-136); Anion Gap 14 mmol/L (6-16); Aspartate Aminotrans (AST/SGOT 16 U/L (12-37); Bilirubin, Total 1.5 mg/dL (0.1-1.0); Blood Urea Nitrogen 12 mg/dL (8-24); CO2, Blood 22 mmol/L (21-32); Calcium, Blood 8.6 mg/dL (8.5-10.1); Chloride, Blood 109 mmol/L (98-108); Globulin, Blood 3.1 g/dL (2.2-4.0); Glomerular Filtration Rate >60 (60-); Glucose, Blood 134 mg/dL (70-99); Magnesium, Blood 1.4 mg/dL (1.6-2.4); Potassium, Blood 3.5 mmol/L (3.5-5.5); Sodium, Blood 145 mmol/L (136-145); Total Protein, Blood 6.2 g/dL (6.4-8.2); Troponin I 0.031 ng/mL (0.000-0.040)
[2021-01-17] MEDS ORDERED: REMERON15 M1 PO (20:53)
[2021-01-17] MEDS ORDERED: POTA10T PO (20:56)
[2021-01-17] MEDS ORDERED: ZESTRIL40 M1 PO (20:57)
[2021-01-18 05:32] LABS: BASOPHILS PERCENT AUTO 0 % (0-2); EOSINOPHILS ABSOLUTE AUTO 0.01 K/mm3 (0.00-0.68); EOSINOPHILS PERCENT AUTO 0 % (0-6); Hematocrit 32.9 % (37.0-53.0); IMMATURE GRAN ABSOLUTE AUTO 0.02 K/mm3 (0.00-0.10); IMMATURE GRAN PERCENT AUTO 0 % (0-1); LYMPHOCYTES ABSOLUTE AUTO 1.01 K/mm3 (0.84-5.20); LYMPHOCYTES PERCENT AUTO 20 % (21-46); MONOCYTES ABSOLUTE AUTO 0.35 K/mm3 (0.16-1.47); MONOCYTES PERCENT AUTO 7 % (4-13); Mean Corpuscular HGB 35.8 pg (26.0-34.0); Mean Corpuscular HGB Conc 33.4 g/dL (31.5-36.5); Mean Corpuscular Volume 107 fL (80-100); Mean Platelet Volume 9.9 fL (9.1-12.4); NEUTROPHILS ABSOLUTE AUTO 3.56 K/mm3 (1.96-9.15); NEUTROPHILS PERCENT AUTO 72 % (41-73); Platelet Count 196 K/mm3 (150-400); RDW Coefficient Variation 19.7 % (11.7-14.2); RDW Standard Deviation 76.8 fL (35.1-46.3); Red Blood Cell Count 3.07 M/mm3 (4.30-5.90); White Blood Cell Count 4.95 K/mm3 (4.00-11.30)
[2021-01-18 05:45] LABS: Alanine Aminotransfer (ALT/SGP 18 U/L (12-78); Albumin, Blood 2.7 g/dL (3.4-5.0); Albumin/Globulin Ratio 0.9 (0.8-1.8); Alk Phos 49 U/L (50-136); Anion Gap 12 mmol/L (6-16); Aspartate Aminotrans (AST/SGOT 15 U/L (12-37); Bilirubin, Total 1.6 mg/dL (0.1-1.0); Blood Urea Nitrogen 11 mg/dL (8-24); Bun/Creatinine Ratio 9.8 (12.0-20.0); CO2, Blood 22 mmol/L (21-32); Calcium, Blood 8.3 mg/dL (8.5-10.1); Chloride, Blood 112 mmol/L (98-108); Creatinine, Blood 1.12 mg/dL (0.60-1.20); Globulin, Blood 2.9 g/dL (2.2-4.0); Glomerular Filtration Rate >60 (60-); Glucose, Blood 110 mg/dL (70-99); Potassium, Blood 3.2 mmol/L (3.5-5.5); Sodium, Blood 146 mmol/L (136-145); Total Protein, Blood 5.6 g/dL (6.4-8.2)
--- NOTE | 2021-01-18 13:24 | NUR ---
PT RESTING QUIETLY. ATIVAN AND MARINOL GIVEN PER FOR NAUSEA. VERY PLEASANT AND APPEARS WEAK AND ILL. PT STATES "NAUSEA FOR PAST 3 WEEKS WITH EPISODES OF VOMITING." HX ESOPHAGEAL STRICTURES. VERY PALE. METOPROLOL GIVEN IV FOR HTN AND TACHYCARDIA. WILL CONTINUE TO MONITOR.
[2021-01-18 16:42] LABS: Anion Gap 9 mmol/L (6-16); Blood Urea Nitrogen 11 mg/dL (8-24); Bun/Creatinine Ratio 9.7 (12.0-20.0); CO2, Blood 25 mmol/L (21-32); Calcium, Blood 8.1 mg/dL (8.5-10.1); Chloride, Blood 115 mmol/L (98-108); Creatinine, Blood 1.13 mg/dL (0.60-1.20); Glomerular Filtration Rate >60 (60-); Glucose, Blood 116 mg/dL (70-99); Sodium, Blood 149 mmol/L (136-145)
--- NOTE | 2021-01-18 17:57 | NUR ---
NO FURTHER EPISODES OF N/V AFTER ATIVAN AND MARINOL. ACTUALLY GETTING APPETITE FOR MORE SOLID FOODS. IN GOOD SPIRITS WITH NO ACUTE CHANGES.
--- NOTE | 2021-01-18 19:15 | NUR ---
RECEIVED REPORT FROM BASIL BAL. PT IN BED WATCHING TV. RESP E/U ON RA. IV IN LAC SALINE LOCKED. TELE IN PLACE. NO NEEDS AT THIS TIME. WILL MONITOR AND PROVIDE CARE T/O SHIFT. PT IS ALERT AND ORIENTED. CALL LT IN REACH.
--- NOTE | 2021-01-18 22:08 | NUR ---
PT RESTING COMFORTABLY. NO NAUSEA REPORTED. CALL LT IN REACH.
--- NOTE | 2021-01-19 00:11 | NUR ---
PT RESTING. RESP E/U ON RA. CALL LT IN REACH.
--- NOTE | 2021-01-19 00:15 | NUR ---
PT AWAKE WATCHING TV. NO NEEDS AT THIS TIME. CBG 97. DENIES NAUSEA. CALL LT IN REACH.
--- NOTE | 2021-01-19 03:07 | NUR ---
PT RESTING. CALL LT IN REACH.
--- NOTE | 2021-01-19 04:01 | NUR ---
PT APPEARS TO BE RESTING COMFORTABLY. CALL LT IN REACH.
--- NOTE | 2021-01-19 06:41 | NUR ---
SHIFT SUMMARY: A/O. USES CANE TO AMBULATE INDEPENDENTLY. ON RA. SR ON TELE. NO COMPLAINTS OF PAIN. MEDICATED ONCE FOR NAUSEA THIS MORNING WITH ZOFRAN. PT IS ANXIOUS TO EAT BREAKFAST. TOLERATED CLEAR LIQUIDS DURING SHIFT. CBG IN 90'S. NO ACUTE CHANGES. WILL CONTINUE TO MONITOR UNTIL SHIFT REPORT.
[2021-01-19 07:56] LABS: Anion Gap 8 mmol/L (6-16); Blood Urea Nitrogen 10 mg/dL (8-24); CO2, Blood 28 mmol/L (21-32); Calcium, Blood 8.3 mg/dL (8.5-10.1); Chloride, Blood 115 mmol/L (98-108); Creatinine, Blood 1.25 mg/dL (0.60-1.20); Glomerular Filtration Rate >60 (60-); Glucose, Blood 97 mg/dL (70-99); Potassium, Blood 3.8 mmol/L (3.5-5.5); Sodium, Blood 151 mmol/L (136-145)
[2021-01-19] MEDS ORDERED: DRON5 PO (11:18)
--- NOTE | 2021-01-19 14:18 | NUR ---
SHIFT SUMMARY. 1415 PT DISCHARGED HOME VIA PERSONAL VEHICLE ACCOMPANIED AND DRIVEN BY FRIEND. PT ESCORTED TO ENTRANCE VIA W/C BY TREASURY ASSISTANT. PERSONAL BELONGINGS WITH PT INCLUDING DENTURES AND CELL PHONE. IV REMOVED. D/C INSTRUCTIONS REVIEWED WITH PT AND COPY PROVIDED. PT TOLERATED A SMALL BREAKFAST THIS AM. PT BECAME NAUSEUS AND HAD SOME VOMMITTING AFTER LUNCH, HE REPORTED THAT HE MAY HAVE TAKEN IN MORE THAN HE COULD TOLERATE. NAUSEA RESOLVED WITH IV ZOFRAN. PT NOT NAUSEAS AT TIME OF D/C.
--- NOTE | 2021-01-19 18:23 | NUR ---
Spiritual care note: Lengthy visit with Mr. Kan. He appears quite weak and tells me he has been sick "for over a month." When asked about a dx, he states, "They don't know." He says he feels a bit better. He also says he has no family or friends locally and admits he is lonely. His 's adult children moved her out of state as her Parkinson's advanced. He misses her. He allowed me to pray for his and he responded well to companionship and emotional affirmation. When asked if he felt ready to return home, he said "I guess so." I am concerned for him. I can't help but wonder if he has food at home, and is able to care for himself properly. This is his second admission of late. Last discharge, Home Health was supposed to follow him. "They never came and I didn't have a phone number to call. He appears to be falling through the cracks. Regardless, I voiced my concerns to RN. Board Liner Operator services will remain available.
== END 2021-01-19 14:18 | disposition home health service (06) ==
LOC: ER 17:01 → ERHOLD 17:02 → MEDS 17:02
PROVIDERS: Emergency Medicine; Family Medicine; ADMIT Internal Medicine
DX: R11.2 Nausea with vomiting, unspecified (principal); E11.21 Type 2 diabetes mellitus with diabetic nephropathy; E11.22 Type 2 diabetes mellitus with diabetic chronic kidney disease; I12.9 Hypertensive chronic kidney disease with stage 1 through stage 4 chronic kidney disease, or unspecified chronic kidney disease; N18.2 Chronic kidney disease, stage 2 (mild); E78.5 Hyperlipidemia, unspecified; K21.9 Gastro-esophageal reflux disease without esophagitis; Z66 Do not resuscitate; R00.0 Tachycardia, unspecified; E83.42 Hypomagnesemia; R07.9 Chest pain, unspecified; Z87.891 Personal history of nicotine dependence; Z79.84 Long term (current) use of oral hypoglycemic drugs
CPT/HCPCS: 36415; 70450; 71045; 80048; 80053; 82947; 83735; 84484; 85025; 93005; 93010; 96361; 96365; 96366; 96367; 96372; 96375; 96376; 99285-25; A9270; G0378; J1650; J2060; J2405; J2550; J2765; J3475; J3480; J7040; J7120; Q0167; Q2038